=== PATIENT | female | born 1955 | race Caucasian/White ===

== ENCOUNTER 2017-09-07 12:33 | Emergency (ER) | payer SELFPAY ==
[~2017-09-07] VITALS: Ht 172.7 cm; Wt 97.0 kg
[~2017-09-07 12:33] MED LIST: ADLT ASA LOW81 MG PO; AMOXICILLIN500 MG PO; AUGMENTIN875TAB PO; BACTRIM DS1 TAB PO; BENADRYL 50MG C50 MG OR; KAZANO PO; KEFLEX500 M1 PO; LEVEMIR FL100 UNIT/M SC; LEVEMIR1000 UNITS SC; LIPITOR20 MG PO; MEDDOSEPAK OR; NAPROSYN500 MG OR; NESINA25 MG PO; NO MEDS; PATANOL0.1 % OP; PERCOCET 5/325M1 TAB OR; PERCOCET 5/325M1 TAB PO; ZITHROMAX250 MG PO; ZOFRAN ODT8 MG SL; ZOFRAN4 M1 OR; [UNRECOGNIZED DRUG - SUPPLY]; no home meds
[2017-09-07 13:12] LABS: HEMATOCRIT 40.1 % (37.0-47.0); HEMOGLOBIN 14.1 g/dl (12.0-16.0); IMMATURE GRANULOCYTES 0.5 % (0.0-1.0); MEAN CELL VOLUME 84.6 fL CALC (80.0-100.0); MEAN CORPUSCULAR HGB 29.7 pG CALC (26.0-32.0); MEAN CORPUSCULAR HGB CONC 35.2 g/L CALC (32.0-36.0); NEUT# 4.25 thou/uL (2.00-7.15); RED BLOOD COUNT 4.74 mill/uL (4.20-5.60); RED CELL DISTRI WIDTH 13.5 % (11.5-15.5)
[2017-09-07 13:32] LABS: ALBUMIN 4.3 g/dL (3.2-5.0); ALKALINE PHOSPHATASE 73 u/l (38-126); ANION GAP 17 (6-22 (CALC)); BUN 12 mg/dL (8-23); BUN/CREATININE RATIO 20 (12-20 (CALC)); CALCIUM 9.4 mg/dL (8.4-10.2); CARBON DIOXIDE 24 mmol/l (22-30); CHLORIDE 100 mmol/l (95-108); CREATININE 0.6 mg/dL (0.5-1.0); GFR > 60 ML/MIN (>=60 (CALC)); GFR FOR AFR.AMER. > 60 ML/MIN (>=60 (CALC)); GLUCOSE 400 mg/dL (82-115); SGOT/AST 31 u/l (9-36); SGPT/ALT 57 u/l (11-66); SODIUM 136 mmol/l (137-146); TOTAL PROTEIN 7.2 g/dL (6.3-8.2)
[2017-09-07] MEDS ORDERED: LEVEMIR100 UNIT/M SC (13:51)
[2017-09-07] MEDS ORDERED: BACTRIM DS1 TAB PO (13:52)
[2017-09-07 15:45] VITALS: BP 149/70
== END 2017-09-07 15:53 | disposition home or self-care (01) | DRG 603 ==
LOC: ED 12:33
PROVIDERS: Emergency Medicine
PROC: 0H9MXZZ Drainage of Right Foot Skin, External Approach (ICD-10-PCS; principal; 2017-09-07)
DX: L02.611 Cutaneous abscess of right foot (principal); B96.20 Unspecified Escherichia coli [E. coli] as the cause of diseases classified elsewhere; Z16.12 Extended spectrum beta lactamase (ESBL) resistance

== ENCOUNTER 2017-09-09 18:08 | Observation (INO) | payer SELFPAY ==
[~2017-09-09] VITALS: Ht 172.7 cm; Wt 97.0 kg
[~2017-09-09 18:08] MED LIST changes: +LEVEMIR100 UNIT/M SC
--- NOTE | 2017-09-09 18:55 | NUR ---
RECEIVED REPORT FROM MESSI HERNÁNDEZ. IN ROOM INTRODUCED SELF TO PT. NO C/O.
--- NOTE | 2017-09-09 19:33 | NUR ---
AMBULATED TO BR GAIT SLOW AND STEADY, VOIDING QS JV URINE. NO C/O.
--- NOTE | 2017-09-09 20:20 | NUR ---
PATIENT ARRIVED TO THE FLOOR IN STABLE CONDITION VIA WHEELCHAIR AND ACCOMPANIED BY ED STAFF. PATIENT WEIGHED AND SETTLED TO BED. ORIENT PATIENT TO ROOM CALL SYSTEM. BED IN LOW POSITION, CALL LIGHT IN REACH.
--- NOTE | 2017-09-09 20:33 | NUR ---
AWAITING ADMISSION TO [facility]. C/O.
--- NOTE | 2017-09-09 21:10 | NUR ---
Admission Note Report Given to: ESTIVEN HERNÁNDEZ Transported by: Wheelchair X Stretcher Transported with: X Nurse X Transporter X Patent IV [employer] Bio Medical Technician
[2017-09-09 21:20] VITALS: BP 141/75
[2017-09-09 23:09] VITALS: BP 160/77
--- NOTE | 2017-09-10 01:00 | NUR ---
OUTDOOR ILLUMINATING ENGINEER REPORTS THAT PATIENT WANTS TO LEAVE. WENT TO PATIENT ROOM TO ENCOURAGE TO STAY UNTIL SEEM BY THE DOCTOR IN THE MORNING. PATIENT STATED" I WAS TOLD BY THE ER DOCTOR THAT I WOULD BE ADMITTED FOR 24-48 HOURS FOR ANTIBIOTICS AND THAT IS NOT HAPPENING" REMINDED PATIENT THAT THE TREATMENT HAS ALREADY BEGUN. PT INSISTED THAT HER IV ACCESS BE PULLED OR SHE WILL BE LEAVING WITH IT IN PLACE.
--- NOTE | 2017-09-10 01:45 | NUR ---
PATIENT LEFT AMA. PRIOR TO LEAVING PATIENT WAS EDUCATED ON THE CONSEQUENCES OF LEAVING AMA. PT STATED "I UNDERSTAND". PATIENT WAS ADVISED THAT SHE MAY RETURN TO THE ED AT ANY TIME CONVENIENT TO HER. SALINE LOCK REMOVED. IV CATHETER TIP INTACT. PUNCTURE SITE COVERED WITH TAPE OVER GAUZE.
--- NOTE | 2017-09-10 01:45 | NUR ---
NOTIFY DR FLORES THAT PT HAS LEFT AMA.
== END 2017-09-10 01:45 | disposition left against medical advice (07) | DRG 603 ==
LOC: ED 18:08 → ED-I 18:52 → ED 19:03 → MS2 19:04
PROVIDERS: ADMIT Internal Medicine; ATTEND Internal Medicine
DX: L03.031 Cellulitis of right toe (principal); E11.9 Type 2 diabetes mellitus without complications
CPT/HCPCS: G0378; J1335

== ENCOUNTER 2017-09-21 13:19 | Emergency (ER) | payer SELFPAY ==
[~2017-09-21] VITALS: Ht 172.7 cm; Wt 99.0 kg
[2017-09-21 15:59] LABS: HEMATOCRIT 40.2 % (37.0-47.0); HEMOGLOBIN 14.2 g/dl (12.0-16.0); IMMATURE GRANULOCYTES 0.4 % (0.0-1.0); MEAN CELL VOLUME 84.8 fL CALC (80.0-100.0); MEAN CORPUSCULAR HGB CONC 35.3 g/L CALC (32.0-36.0); NEUT# 5.61 thou/uL (2.00-7.15); RED BLOOD COUNT 4.74 mill/uL (4.20-5.60); RED CELL DISTRI WIDTH 13.4 % (11.5-15.5)
[2017-09-21 16:40] VITALS: BP 155/78
[2017-09-21 16:45] LABS: ALBUMIN 4.1 g/dL (3.2-5.0); ALKALINE PHOSPHATASE 73 u/l (38-126); ANION GAP 16 (6-22 (CALC)); BILIRUBIN, TOTAL 0.9 mg/dL (0.0-1.4); BUN 13 mg/dL (8-23); BUN/CREATININE RATIO 27 (12-20 (CALC)); CARBON DIOXIDE 21 mmol/l (22-30); CHLORIDE 102 mmol/l (95-108); CREATININE 0.5 mg/dL (0.5-1.0); GFR > 60 ML/MIN (>=60 (CALC)); GFR FOR AFR.AMER. > 60 ML/MIN (>=60 (CALC)); GLUCOSE 339 mg/dL (82-115); POTASSIUM 4.1 mmol/l (3.5-5.1); SGOT/AST 40 u/l (9-36); SGPT/ALT 57 u/l (11-66); SODIUM 134 mmol/l (137-146)
== END 2017-09-21 16:40 | disposition home or self-care (01) | DRG 603 ==
LOC: ED 13:19
PROVIDERS: Emergency Medicine
DX: L08.9 Local infection of the skin and subcutaneous tissue, unspecified (principal); E11.9 Type 2 diabetes mellitus without complications
CPT/HCPCS: J1335

== ENCOUNTER 2017-09-22 15:44 | Emergency (ER) | payer SELFPAY ==
[~2017-09-22] VITALS: Ht 172.7 cm; Wt 80.0 kg
[2017-09-22 17:25] VITALS: BP 146/62
== END 2017-09-22 17:25 | disposition home or self-care (01) | DRG 603 ==
LOC: ED 15:44
DX: L08.9 Local infection of the skin and subcutaneous tissue, unspecified (principal); B95.7 Other staphylococcus as the cause of diseases classified elsewhere
CPT/HCPCS: J1335

== ENCOUNTER 2018-01-10 14:44 | Emergency (ER) | payer SELFPAY ==
[~2018-01-10] VITALS: Ht 152.4 cm; Wt 101.1 kg
[2018-01-10 15:56] LABS: HEMATOCRIT 42.3 % (37.0-47.0); HEMOGLOBIN 15.1 g/dl (12.0-16.0); IMMATURE GRANULOCYTES 0.4 % (0.0-1.0); MEAN CELL VOLUME 83.4 fL CALC (80.0-100.0); MEAN CORPUSCULAR HGB 29.8 pG CALC (26.0-32.0); MEAN CORPUSCULAR HGB CONC 35.7 g/L CALC (32.0-36.0); NEUT# 5.13 thou/uL (2.00-7.15); RED BLOOD COUNT 5.07 mill/uL (4.20-5.60); RED CELL DISTRI WIDTH 13.3 % (11.5-15.5)
[2018-01-10 16:08] LABS: ALBUMIN 4.5 g/dL (3.2-5.0); ALKALINE PHOSPHATASE 84 u/l (38-126); ANION GAP 19 (6-22 (CALC)); BILIRUBIN, TOTAL 0.9 mg/dL (0.0-1.4); BUN 16 mg/dL (8-23); BUN/CREATININE RATIO 27 (12-20 (CALC)); CARBON DIOXIDE 21 mmol/l (22-30); CHLORIDE 99 mmol/l (95-108); CREATININE 0.6 mg/dL (0.5-1.0); GFR > 60 ML/MIN (>=60 (CALC)); GFR FOR AFR.AMER. > 60 ML/MIN (>=60 (CALC)); POTASSIUM 4.4 mmol/l (3.5-5.1); SGOT/AST 42 u/l (9-36); SGPT/ALT 73 u/l (11-66); SODIUM 135 mmol/l (137-146); TOTAL PROTEIN 7.3 g/dL (6.3-8.2)
[2018-01-10 17:03] VITALS: BP 147/75
[2018-01-11] MEDS ORDERED: LEVEMIR FL100 UNIT/M SC (12:22)
--- NOTE | 2018-01-13 14:49 | NUR ---
Review of wound cultures collected on 01/10/18 show cardoza-sensitive Enterococcus in L mid toe and coag-neg staph in R middle toe that is resistant to erythromycin and oxacillin. Pt contact attempted. Voicemail left for call back. Pt should receive either vancomycin 1500 mg IV q12h, daptomycin IV, or po doxycycline. Pt may be able to receive treatment through health department.
--- NOTE | 2018-01-14 15:59 | NUR ---
Spoke to pt on 01/14/18 @[id number]. Advised pt of wound culture results and of importance to follow-up with provider for continued care. Recommended that pt may seek treatment at health department or community care if unable to afford seeing a private physician group, such as [facility]. Pt said she will not go to [facility]. Pt advised of her options and that whatever provider she chooses, she can receive IV therapy here if needed and the Pharmacy department is available to discuss results with the provider. Explained that she must be followed by a provider to receive continued IV antibiotics due to severity of infection. Pt said she will call Dr Monterroso's office.
== END 2018-01-10 17:08 | disposition home or self-care (01) | DRG 603 ==
LOC: ED 14:44
PROVIDERS: Emergency Medicine
PROC: 0H9MXZZ Drainage of Right Foot Skin, External Approach (ICD-10-PCS; principal; 2018-01-10)
DX: L03.031 Cellulitis of right toe (principal); E11.9 Type 2 diabetes mellitus without complications; Z86.14 Personal history of Methicillin resistant Staphylococcus aureus infection
CPT/HCPCS: J0878; J1335

== ENCOUNTER 2018-01-11 11:26 | Emergency (ER) | payer SELFPAY ==
[~2018-01-11] VITALS: Ht 172.7 cm; Wt 100.0 kg
[2018-01-11] MEDS ORDERED: LEVEMIR FL100 UNIT/M SC (12:22)
[2018-01-11 12:50] VITALS: BP 150/70
== END 2018-01-11 12:50 | disposition home or self-care (01) | DRG 605 ==
LOC: ED 11:26
DX: S91.104A Unspecified open wound of right lesser toe(s) without damage to nail, initial encounter (principal); L08.9 Local infection of the skin and subcutaneous tissue, unspecified; E11.9 Type 2 diabetes mellitus without complications; X58.XXXA Exposure to other specified factors, initial encounter; Z86.14 Personal history of Methicillin resistant Staphylococcus aureus infection
CPT/HCPCS: J1335

== ENCOUNTER 2018-01-12 14:53 | Emergency (ER) | payer SELFPAY ==
[~2018-01-12] VITALS: Ht 172.7 cm; Wt 101.2 kg
[2018-01-12 17:30] VITALS: BP 153/77
== END 2018-01-12 17:30 | disposition home or self-care (01) | DRG 603 ==
LOC: ED 14:53
DX: L03.031 Cellulitis of right toe (principal); E11.9 Type 2 diabetes mellitus without complications; Z86.14 Personal history of Methicillin resistant Staphylococcus aureus infection
CPT/HCPCS: J1335

== ENCOUNTER 2018-01-14 17:45 | Emergency (ER) | payer SELFPAY ==
[~2018-01-14] VITALS: Ht 172.7 cm; Wt 99.0 kg
[2018-01-14 20:09] VITALS: BP 139/70
== END 2018-01-14 20:09 | disposition home or self-care (01) | DRG 603 ==
LOC: ED 17:45
DX: L03.031 Cellulitis of right toe (principal); Z86.14 Personal history of Methicillin resistant Staphylococcus aureus infection; E11.9 Type 2 diabetes mellitus without complications; Z79.4 Long term (current) use of insulin
CPT/HCPCS: J1335

== ENCOUNTER 2018-01-30 11:18 | Emergency (ER) | payer MEDICARE ==
[~2018-01-30] VITALS: Ht 172.7 cm; Wt 97.0 kg
[2018-01-30] MEDS ORDERED: DOXYCYC MONO100 M2 PO (12:06)
[2018-01-30 12:07] VITALS: BP 132/65
== END 2018-01-30 12:10 | disposition home or self-care (01) ==
LOC: ED 11:18
DX: L03.031 Cellulitis of right toe (principal); B96.89 Other specified bacterial agents as the cause of diseases classified elsewhere; E11.9 Type 2 diabetes mellitus without complications; Z86.14 Personal history of Methicillin resistant Staphylococcus aureus infection; Z79.4 Long term (current) use of insulin; M79.671 Pain in right foot

== ENCOUNTER 2018-02-26 16:16 | Emergency (ER) | payer MEDICARE ==
[~2018-02-26] VITALS: Ht 172.7 cm; Wt 99.6 kg
[~2018-02-26 16:16] MED LIST changes: +DOXYCYC MONO100 M2 PO
[2018-02-26 16:25] VITALS: BP 154/70
[2018-02-26] MEDS ORDERED: CEPHALEXIN500 M1 PO (16:45)
== END 2018-02-26 17:01 | disposition home or self-care (01) ==
LOC: ED 16:16
DX: L03.116 Cellulitis of left lower limb (principal); E11.40 Type 2 diabetes mellitus with diabetic neuropathy, unspecified; Z86.14 Personal history of Methicillin resistant Staphylococcus aureus infection

== ENCOUNTER 2018-04-03 10:52 | Emergency (ER) | payer MEDICARE, MEDICAID ==
[~2018-04-03] VITALS: Ht 172.7 cm; Wt 97.7 kg
[~2018-04-03 10:52] MED LIST changes: +CEPHALEXIN500 M1 PO
[2018-04-03 11:30] VITALS: BP 151/74
== END 2018-04-03 11:30 | disposition home or self-care (01) ==
LOC: ED 10:52
DX: Z48.01 Encounter for change or removal of surgical wound dressing (principal); Z89.421 Acquired absence of other right toe(s)

== ENCOUNTER 2018-05-12 13:25 | Emergency (ER) | payer MEDICARE, MEDICAID ==
[~2018-05-12] VITALS: Ht 172.7 cm; Wt 100.0 kg
[~2018-05-12 13:25] MED LIST changes: +METFORMIN HCL500 M2 PO; +TOUJEO SOL300 UNIT/M SC
[2018-05-12] MEDS ORDERED: DICLOFENAC75 MG PO (14:06)
[2018-05-12] MEDS ORDERED: ORPHENADRINE100 MG PO (14:06)
[2018-05-12] MEDS ORDERED: TRAMADOL HYDROC50 MG PO (14:06)
[2018-05-12] MEDS ORDERED: METFORMIN500 M2 PO (14:08)
[2018-05-12 14:10] VITALS: BP 154/76
== END 2018-05-12 14:10 | disposition home or self-care (01) ==
LOC: ED 13:25
DX: M54.5 Low back pain (principal); G89.29 Other chronic pain; E11.40 Type 2 diabetes mellitus with diabetic neuropathy, unspecified

== ENCOUNTER 2018-05-22 11:35 | Emergency (ER) | payer MEDICARE, MEDICAID ==
[~2018-05-22] VITALS: Ht 172.7 cm; Wt 100.0 kg
[~2018-05-22 11:35] MED LIST changes: +DICLOFENAC75 MG PO; +METFORMIN500 M2 PO; +ORPHENADRINE100 MG PO; +TRAMADOL HYDROC50 MG PO
[2018-05-22 12:58] LABS: URINE BILIRUBIN - DIPSTICK NEGATIVE (NEGATIVE); URINE BLOOD DIPSTICK NEGATIVE (NEGATIVE); URINE COLOR YELLOW; URINE GLUCOSE - DIPSTICK 100 mg/dL (NEGATIVE); URINE KETONE NEGATIVE (NEGATIVE); URINE LEUK ESTERASE NEGATIVE (NEGATIVE); URINE NITRITE - DIPSTICK NEGATIVE (Negative); URINE PH 5.5 (4.5-8.0); URINE PROTEIN - DIPSTICK NEGATIVE (NEG-TRACE); URINE SPECIFIC GRAVITY <=1.005; URINE UROBILINOGEN - DIPSTICK 0.2 E.U./dL (0.2)
[2018-05-22 12:59] LABS: HEMATOCRIT 41.1 % (37.0-47.0); HEMOGLOBIN 14.6 g/dl (12.0-16.0); IMMATURE GRANULOCYTES 0.4 % (0.0-1.0); MEAN CELL VOLUME 84.2 fL CALC (80.0-100.0); MEAN CORPUSCULAR HGB 29.9 pG CALC (26.0-32.0); MEAN CORPUSCULAR HGB CONC 35.5 g/L CALC (32.0-36.0); NEUT# 4.05 thou/uL (2.00-7.15); RED BLOOD COUNT 4.88 mill/uL (4.20-5.60); RED CELL DISTRI WIDTH 13.4 % (11.5-15.5)
[2018-05-22 13:00] LABS: URINE CLARITY CLEAR
[2018-05-22 13:13] LABS: ALBUMIN 4.4 g/dL (3.2-5.0); ALKALINE PHOSPHATASE 75 u/l (38-126); ANION GAP 16 (6-22 (CALC)); BUN 11 mg/dL (8-23); BUN/CREATININE RATIO 23 (12-20 (CALC)); CARBON DIOXIDE 24 mmol/l (22-30); CHLORIDE 100 mmol/l (95-108); CREATININE 0.5 mg/dL (0.5-1.0); GFR > 60 ML/MIN (>=60 (CALC)); GFR FOR AFR.AMER. > 60 ML/MIN (>=60 (CALC)); LIPASE 72 u/l (23-300); POTASSIUM 4.7 mmol/l (3.5-5.1); SGOT/AST 41 u/l (9-36); SGPT/ALT 70 u/l (11-66); SODIUM 134 mmol/l (137-146); TOTAL PROTEIN 7.8 g/dL (6.3-8.2)
[2018-05-22] MEDS ORDERED: DULCOLAX10 MG RE ×2 (13:29→14:08)
[2018-05-22 14:00] VITALS: BP 156/63
== END 2018-05-22 14:00 | disposition home or self-care (01) ==
LOC: ED 11:35
PROVIDERS: Emergency Medicine
DX: K56.41 Fecal impaction (principal); E11.40 Type 2 diabetes mellitus with diabetic neuropathy, unspecified; Z86.14 Personal history of Methicillin resistant Staphylococcus aureus infection

== ENCOUNTER 2018-10-31 21:04 | Emergency (ER) | payer MEDICARE, MEDICAID ==
[~2018-10-31] VITALS: Ht 172.7 cm; Wt 98.6 kg
[~2018-10-31 21:04] MED LIST changes: +DULCOLAX10 MG RE; +NEFAZODONE PO
[2018-10-31] MEDS ORDERED: LOSARTAN POT25 MG PO (21:22)
[2018-10-31] MEDS ORDERED: FLECTOR1.3 % EX (21:22)
[2018-10-31] MEDS ORDERED: VOLTAREN - GENE75 MG PO (21:26)
[2018-10-31] MEDS ORDERED: TRAMADOL HCL50 MG PO (21:26)
[2018-10-31 21:40] VITALS: BP 175/80
== END 2018-10-31 21:40 | disposition home or self-care (01) ==
LOC: ED 21:04
DX: M70.71 Other bursitis of hip, right hip (principal); G57.10 Meralgia paresthetica, unspecified lower limb; M79.604 Pain in right leg

== ENCOUNTER 2018-12-09 20:30 | Emergency (ER) | payer MEDICARE, MEDICAID ==
[~2018-12-09] VITALS: Ht 172.7 cm; Wt 97.0 kg
[~2018-12-09 20:30] MED LIST changes: +FLECTOR1.3 % EX; +LOSARTAN POT25 MG PO; +TRAMADOL HCL50 MG PO; +VOLTAREN - GENE75 MG PO
[2018-12-09 21:06] VITALS: BP 167/73
== END 2018-12-09 21:06 | disposition left against medical advice (07) ==
LOC: ED 20:30
DX: M54.5 Low back pain (principal); E11.40 Type 2 diabetes mellitus with diabetic neuropathy, unspecified; Z91.19 Patient's noncompliance with other medical treatment and regimen

== ENCOUNTER 2018-12-11 14:28 | Emergency (ER) | payer MEDICARE, MEDICAID ==
[~2018-12-11] VITALS: Ht 172.7 cm; Wt 100.0 kg
[2018-12-11] MEDS ORDERED: ULTRAM50 M1 PO (15:11)
[2018-12-11] MEDS ORDERED: MEDDOSEPAK PO (15:11)
[2018-12-11 15:28] VITALS: BP 138/75
== END 2018-12-11 15:28 | disposition home or self-care (01) ==
LOC: ED 14:28
DX: M25.551 Pain in right hip (principal); G89.29 Other chronic pain; E11.40 Type 2 diabetes mellitus with diabetic neuropathy, unspecified

== ENCOUNTER 2019-10-24 14:00 | Inpatient (IN) | payer MEDICARE, MEDICAID ==
[~2019-10-24] VITALS: Ht 172.7 cm; Wt 97.0 kg
[~2019-10-24 14:00] MED LIST changes: +MEDDOSEPAK PO; +ULTRAM50 M1 PO
[2019-10-24] MEDS ORDERED: TRAMADOL HYDROC50 M1 PO (18:35)
[2019-10-24] MEDS ORDERED: DOXYCYCLINE100 MG PO (18:35)
[2019-10-24 19:44] LABS: ALBUMIN 4.6 g/dL (3.2-5.0); ALKALINE PHOSPHATASE 63 u/l (38-126); ANION GAP 16 (6-22 (CALC)); BILIRUBIN, TOTAL 0.8 mg/dL (0.0-1.4); BUN 19 mg/dL (8-23); BUN/CREATININE RATIO 34 (12-20 (CALC)); CARBON DIOXIDE 26 mmol/l (22-30); CHLORIDE 99 mmol/l (95-108); CREATININE 0.5 mg/dL (0.5-1.0); GFR > 60 ML/MIN (>=60 (CALC)); GFR FOR AFR.AMER. > 60 ML/MIN (>=60 (CALC)); SGOT/AST 32 u/l (9-36); SODIUM 135 mmol/l (137-146)
[2019-10-24 19:54] LABS: HEMATOCRIT 39.5 % (37.0-47.0); HEMOGLOBIN 13.8 g/dl (12.0-16.0); RED BLOOD COUNT 4.6 mill/uL (4.20-5.60)
[2019-10-24 19:55] LABS: MEAN CELL VOLUME 85.9 fL CALC (80.0-100.0); MEAN CORPUSCULAR HGB CONC 34.9 g/L CALC (32.0-36.0)
[2019-10-24 19:56] LABS: NEUT# 7.39 thou/uL (2.00-7.15); RED CELL DISTRI WIDTH 13.6 % (11.5-15.5)
[2019-10-24 20:08] VITALS: BP 163/68
[2019-10-25 04:12] VITALS: BP 157/73
[2019-10-25 05:33] LABS: ANION GAP 14 (6-22 (CALC)); BUN 17 mg/dL (8-23); BUN/CREATININE RATIO 27 (12-20 (CALC)); CARBON DIOXIDE 26 mmol/l (22-30); CHLORIDE 102 mmol/l (95-108); CREATININE 0.6 mg/dL (0.5-1.0); GFR > 60 ML/MIN (>=60 (CALC)); GFR FOR AFR.AMER. > 60 ML/MIN (>=60 (CALC)); SODIUM 137 mmol/l (137-146)
[2019-10-25 07:42] VITALS: BP 155/72
[2019-10-25 10:32] LABS: HEMATOCRIT 35.9 % (37.0-47.0); HEMOGLOBIN 12.4 g/dl (12.0-16.0); IMMATURE GRANULOCYTES 0.4 % (0.0-5.0); MEAN CELL VOLUME 87.1 fL CALC (80.0-100.0); MEAN CORPUSCULAR HGB 30.1 pG CALC (26.0-32.0); MEAN CORPUSCULAR HGB CONC 34.5 g/L CALC (32.0-36.0); NEUT# 4.28 thou/uL (2.00-7.15); RED BLOOD COUNT 4.12 mill/uL (4.20-5.60); RED CELL DISTRI WIDTH 13.4 % (11.5-15.5)
[2019-10-25 16:17] VITALS: BP 154/71
[2019-10-25 18:55] VITALS: BP 158/70
[2019-10-25 19:29] LABS: URINE BILIRUBIN - DIPSTICK NEGATIVE (NEGATIVE); URINE BLOOD DIPSTICK NEGATIVE (NEGATIVE); URINE COLOR YELLOW; URINE GLUCOSE - DIPSTICK NEGATIVE (NEGATIVE); URINE KETONE NEGATIVE (NEGATIVE); URINE LEUK ESTERASE NEGATIVE (NEGATIVE); URINE NITRITE - DIPSTICK NEGATIVE (Negative); URINE PROTEIN - DIPSTICK NEGATIVE (NEG-TRACE); URINE UROBILINOGEN - DIPSTICK 0.2 E.U./dL (0.2)
[2019-10-26 04:47] VITALS: BP 131/71
[2019-10-26 07:35] VITALS: BP 149/76
[2019-10-26 16:52] VITALS: BP 171/68
[2019-10-26 19:10] VITALS: BP 119/60
[2019-10-27] VITALS (10 sets, daily range): BP systolic 134–168; BP diastolic 47–76
[2019-10-27 04:55] LABS: HEMATOCRIT 33.4 % (37.0-47.0); HEMOGLOBIN 11.5 g/dl (12.0-16.0); IMMATURE GRANULOCYTES 0.2 % (0.0-5.0); MEAN CELL VOLUME 87.4 fL CALC (80.0-100.0); MEAN CORPUSCULAR HGB 30.1 pG CALC (26.0-32.0); MEAN CORPUSCULAR HGB CONC 34.4 g/L CALC (32.0-36.0); NEUT# 6.05 thou/uL (2.00-7.15); RED BLOOD COUNT 3.82 mill/uL (4.20-5.60); RED CELL DISTRI WIDTH 13.6 % (11.5-15.5)
[2019-10-27 05:12] LABS: ANION GAP 14 (6-22 (CALC)); BUN 12 mg/dL (8-23); BUN/CREATININE RATIO 20 (12-20 (CALC)); CARBON DIOXIDE 21 mmol/l (22-30); CHLORIDE 107 mmol/l (95-108); CREATININE 0.6 mg/dL (0.5-1.0); GFR > 60 ML/MIN (>=60 (CALC)); GFR FOR AFR.AMER. > 60 ML/MIN (>=60 (CALC)); POTASSIUM 4.1 mmol/l (3.5-5.1); SODIUM 137 mmol/l (137-146)
[2019-10-28 03:35] VITALS: BP 124/70
[2019-10-28 05:42] LABS: HEMATOCRIT 33.3 % (37.0-47.0); HEMOGLOBIN 11.3 g/dl (12.0-16.0); IMMATURE GRANULOCYTES 0.2 % (0.0-5.0); MEAN CORPUSCULAR HGB 30.2 pG CALC (26.0-32.0); MEAN CORPUSCULAR HGB CONC 33.9 g/L CALC (32.0-36.0); NEUT# 5.38 thou/uL (2.00-7.15); RED BLOOD COUNT 3.74 mill/uL (4.20-5.60); RED CELL DISTRI WIDTH 13.8 % (11.5-15.5)
[2019-10-28 05:54] LABS: ANION GAP 12 (6-22 (CALC)); BUN 11 mg/dL (8-23); BUN/CREATININE RATIO 18 (12-20 (CALC)); CARBON DIOXIDE 24 mmol/l (22-30); CHLORIDE 108 mmol/l (95-108); CREATININE 0.6 mg/dL (0.5-1.0); GFR > 60 ML/MIN (>=60 (CALC)); GFR FOR AFR.AMER. > 60 ML/MIN (>=60 (CALC)); MAGNESIUM 2.1 mg/dL (1.6-2.3); POTASSIUM 4.4 mmol/l (3.5-5.1); SODIUM 139 mmol/l (137-146)
[2019-10-28 08:00] VITALS: BP 148/71
[2019-10-28 08:42] VITALS: BP 148/71
[2019-10-28] MEDS ORDERED: PERCOCET 5/325M1 TAB PO (09:17)
== END 2019-10-28 10:18 | disposition home or self-care (01) | DRG 256 ==
LOC: ED 14:00 → MS2 18:37
PROVIDERS: Nurse Practitioner Family; ADMIT Internal Medicine; ATTEND Internal Medicine
PROC: 0Y6R0Z0 Detachment at Right 2nd Toe, Complete, Open Approach (ICD-10-PCS; principal; 2019-10-27)
DX: E11.52 Type 2 diabetes mellitus with diabetic peripheral angiopathy with gangrene (principal); I96 Gangrene, not elsewhere classified; L03.115 Cellulitis of right lower limb; L97.518 Non-pressure chronic ulcer of other part of right foot with other specified severity; E11.621 Type 2 diabetes mellitus with foot ulcer; E11.42 Type 2 diabetes mellitus with diabetic polyneuropathy; L84 Corns and callosities; R03.0 Elevated blood-pressure reading, without diagnosis of hypertension; R74.0 Nonspecific elevation of levels of transaminase and lactic acid dehydrogenase [LDH]; Z79.84 Long term (current) use of oral hypoglycemic drugs; Z86.19 Personal history of other infectious and parasitic diseases
CPT/HCPCS: G0378; J0692; J3370

== ENCOUNTER 2019-10-31 00:13 | Emergency (ER) | payer MEDICARE, MEDICAID ==
[~2019-10-31] VITALS: Ht 172.7 cm; Wt 99.4 kg
[~2019-10-31 00:13] MED LIST changes: +DOXYCYCLINE100 MG PO; +TRAMADOL HYDROC50 M1 PO
[2019-10-31 01:04] VITALS: BP 144/76
== END 2019-10-31 01:04 | disposition home or self-care (01) ==
LOC: ED 00:13
DX: T87.89 Other complications of amputation stump (principal); E11.42 Type 2 diabetes mellitus with diabetic polyneuropathy; Y83.5 Amputation of limb(s) as the cause of abnormal reaction of the patient, or of later complication, without mention of misadventure at the time of the procedure; Z79.4 Long term (current) use of insulin; Z89.421 Acquired absence of other right toe(s)

== ENCOUNTER 2020-01-01 | Emergency (ER) | payer MEDICARE, MEDICAID ==
[2020-01-01 02:23] LABS: HEMATOCRIT 36.3 % (37.0-47.0); HEMOGLOBIN 12.7 g/dl (12.0-16.0); IMMATURE GRANULOCYTES 0.4 % (0.0-5.0); MEAN CELL VOLUME 85.6 fL CALC (80.0-100.0); NEUT# 6.82 thou/uL (2.00-7.15); RED BLOOD COUNT 4.24 mill/uL (4.20-5.60); RED CELL DISTRI WIDTH 13.5 % (11.5-15.5)
[2020-01-01 02:37] LABS: ALBUMIN 4.3 g/dL (3.2-5.0); ALKALINE PHOSPHATASE 56 u/l (38-126); ANION GAP 14 (6-22 (CALC)); BUN 16 mg/dL (8-23); BUN/CREATININE RATIO 32 (12-20 (CALC)); CARBON DIOXIDE 24 mmol/l (22-30); CHLORIDE 100 mmol/l (95-108); CREATININE 0.5 mg/dL (0.5-1.0); GFR > 60 ML/MIN (>=60 (CALC)); GFR FOR AFR.AMER. > 60 ML/MIN (>=60 (CALC)); POTASSIUM 4.4 mmol/l (3.5-5.1); SGOT/AST 41 u/l (9-36); SODIUM 133 mmol/l (137-146); TOTAL PROTEIN 7.9 g/dL (6.3-8.2)
[2020-01-01] MEDS ORDERED: BACTRIM DS1 TAB PO (03:21)
[2020-01-01] MEDS ORDERED: KEFLEX500 M1 PO (03:21)
== END 2020-01-01 04:10 | disposition home or self-care (01) ==
PROVIDERS: Emergency Medicine
PROC: 0H9NXZZ Drainage of Left Foot Skin, External Approach (ICD-10-PCS; principal; 2020-01-01)
DX: L03.116 Cellulitis of left lower limb (principal); L02.612 Cutaneous abscess of left foot; E11.40 Type 2 diabetes mellitus with diabetic neuropathy, unspecified; Z79.4 Long term (current) use of insulin

== ENCOUNTER 2021-08-04 12:42 | Emergency (ER) | payer MEDICARE, MEDICAID ==
[~2021-08-04] VITALS: Ht 172.7 cm; Wt 95.4 kg
[2021-08-04 14:25] VITALS: BP 176/73
[2021-08-04] MEDS ORDERED: TRAMADOL HCL50 MG PO ×2 (14:26→14:27)
== END 2021-08-04 14:25 | disposition home or self-care (01) ==
LOC: ED 12:42
DX: S09.90XA Unspecified injury of head, initial encounter (principal); R11.2 Nausea with vomiting, unspecified; E11.40 Type 2 diabetes mellitus with diabetic neuropathy, unspecified; W55.12XA Struck by horse, initial encounter; Y93.K9 Activity, other involving animal care; Z79.4 Long term (current) use of insulin; Z20.822 Contact with and (suspected) exposure to COVID-19

== ENCOUNTER 2021-09-15 18:09 | Emergency (ER) | payer MEDICARE, MEDICAID ==
[~2021-09-15] VITALS: Ht 172.7 cm; Wt 94.8 kg
[2021-09-15 19:57] LABS: HEMATOCRIT 41.6 % (37.0-47.0); HEMOGLOBIN 14.1 g/dl (12.0-16.0); IMMATURE GRANULOCYTES 0.1 % (0.0-5.0); MEAN CELL VOLUME 88.1 fL CALC (80.0-100.0); MEAN CORPUSCULAR HGB 29.9 pG CALC (26.0-32.0); MEAN CORPUSCULAR HGB CONC 33.9 g/dL CAL (32.0-36.0); NEUT# 7.8 thou/uL (2.00-7.15); RED BLOOD COUNT 4.72 mill/uL (4.20-5.60); RED CELL DISTRI WIDTH 12.9 % (11.5-15.5)
[2021-09-15 20:04] LABS: ALBUMIN 4.6 g/dL (3.2-5.0); ALKALINE PHOSPHATASE 67 u/l (38-126); AMYLASE 51 u/l (30-110); BILIRUBIN, TOTAL 0.7 mg/dL (0.0-1.4); BUN 16 mg/dL (8-23); BUN/CREATININE RATIO 26 (12-20 (CALC)); CHLORIDE 101 mmol/l (95-108); CREATININE 0.6 mg/dL (0.5-1.0); GFR > 60 ML/MIN (>=60 (CALC)); GFR FOR AFR.AMER. > 60 ML/MIN (>=60 (CALC)); LIPASE 79 u/l (23-300); POTASSIUM 4.7 mmol/l (3.5-5.1); SGOT/AST 29 u/l (9-36); TOTAL PROTEIN 7.9 g/dL (6.3-8.2)
[2021-09-15 20:05] LABS: ANION GAP 15 (6-22 (CALC)); CARBON DIOXIDE 29 mmol/l (22-30); SODIUM 140 mmol/l (137-146)
[2021-09-15 20:24] LABS: URINE BILIRUBIN - DIPSTICK NEGATIVE (NEGATIVE); URINE BLOOD DIPSTICK NEGATIVE (NEGATIVE); URINE COLOR YELLOW; URINE GLUCOSE - DIPSTICK NEGATIVE (NEGATIVE); URINE KETONE NEGATIVE (NEGATIVE); URINE LEUK ESTERASE NEGATIVE (NEGATIVE); URINE PROTEIN - DIPSTICK 100 mg/dL (NEG-TRACE); URINE SPECIFIC GRAVITY >=1.030
[2021-09-15 20:31] LABS: URINE NITRITE - DIPSTICK NEGATIVE (Negative)
[2021-09-15 20:33] LABS: URINE RBC 0-2 RBC/hpf (0-5)
[2021-09-15] MEDS ORDERED: DICYCLOMINE10 MG PO (21:51)
[2021-09-15 22:29] VITALS: BP 186/76
== END 2021-09-15 22:49 | disposition home or self-care (01) ==
LOC: ED 18:09
PROVIDERS: Family Medicine
DX: K58.9 Irritable bowel syndrome, unspecified (principal); E11.40 Type 2 diabetes mellitus with diabetic neuropathy, unspecified; Z79.4 Long term (current) use of insulin
CPT/HCPCS: Q9967

== ENCOUNTER 2022-03-25 09:37 | Emergency (ER) | payer MEDICARE, MEDICAID ==
[~2022-03-25] VITALS: Ht 172.7 cm; Wt 96.0 kg
[2022-03-25] VITALS (10 sets, daily range): BP systolic 130–162; BP diastolic 52–72
[~2022-03-25 09:37] MED LIST changes: +DICYCLOMINE10 MG PO
[2022-03-25 10:33] LABS: HEMATOCRIT 38.7 % (37.0-47.0); HEMOGLOBIN 13.4 g/dl (12.0-16.0); IMMATURE GRANULOCYTES 0.3 % (0.0-5.0); MEAN CELL VOLUME 89.4 fL CALC (80.0-100.0); MEAN CORPUSCULAR HGB 30.9 pG CALC (26.0-32.0); MEAN CORPUSCULAR HGB CONC 34.6 g/dL CAL (32.0-36.0); NEUT# 11.73 thou/uL (2.00-7.15); RED BLOOD COUNT 4.33 mill/uL (4.20-5.60); RED CELL DISTRI WIDTH 12.5 % (11.5-15.5)
[2022-03-25 10:45] LABS: ALBUMIN 4.2 g/dL (3.2-5.0); ALKALINE PHOSPHATASE 74 u/l (38-126); ANION GAP 11 (6-22 (CALC)); BILIRUBIN, TOTAL 0.7 mg/dL (0.0-1.4); BUN 10 mg/dL (8-23); BUN/CREATININE RATIO 17 (12-20 (CALC)); CARBON DIOXIDE 26 mmol/l (22-30); CHLORIDE 99 mmol/l (95-108); CREATININE 0.6 mg/dL (0.5-1.0); GFR > 60 ML/MIN (>=60 (CALC)); GFR FOR AFR.AMER. > 60 ML/MIN (>=60 (CALC)); POTASSIUM 4.8 mmol/l (3.5-5.1); SGOT/AST 21 u/l (9-36); TOTAL PROTEIN 7.3 g/dL (6.3-8.2)
[2022-03-25 10:52] LABS: SODIUM 131 mmol/l (137-146)
[2022-03-25] MEDS ORDERED: LOSARTAN POTASS25 MG PO (20:03)
== END 2022-03-25 14:10 | disposition left against medical advice (07) ==
LOC: ED 09:37
PROVIDERS: Family Medicine
DX: R07.89 Other chest pain (principal); I10 Essential (primary) hypertension; E11.40 Type 2 diabetes mellitus with diabetic neuropathy, unspecified; E66.9 Obesity, unspecified; Z79.4 Long term (current) use of insulin; Z91.19 Patient's noncompliance with other medical treatment and regimen
CPT/HCPCS: Q9967

== ENCOUNTER 2022-03-25 18:53 | Observation (INO) | payer MEDICARE, MEDICAID ==
[2022-03-25] VITALS (9 sets, daily range): BP systolic 107–140; BP diastolic 46–67
[~2022-03-25] VITALS: Ht 172.7 cm; Wt 93.0 kg
[2022-03-25] MEDS ORDERED: LOSARTAN POTASS25 MG PO (20:03)
--- NOTE | 2022-03-25 20:09 | NUR ---
PT MEDICATED FOR PAIN. STRETCHER ADJUSTED. CALL LIGHT WITHIN REACH
[2022-03-25 20:10] LABS: HEMATOCRIT 41.9 % (37.0-47.0); HEMOGLOBIN 14.3 g/dl (12.0-16.0); IMMATURE GRANULOCYTES 0.2 % (0.0-5.0); MEAN CELL VOLUME 89.3 fL CALC (80.0-100.0); MEAN CORPUSCULAR HGB 30.5 pG CALC (26.0-32.0); MEAN CORPUSCULAR HGB CONC 34.1 g/dL CAL (32.0-36.0); NEUT# 12.82 thou/uL (2.00-7.15); RED BLOOD COUNT 4.69 mill/uL (4.20-5.60); RED CELL DISTRI WIDTH 12.6 % (11.5-15.5)
[2022-03-25 20:19] LABS: ALBUMIN 4.4 g/dL (3.2-5.0); ALKALINE PHOSPHATASE 73 u/l (38-126); ANION GAP 15 (6-22 (CALC)); BILIRUBIN, TOTAL 1.3 mg/dL (0.0-1.4); BUN 11 mg/dL (8-23); BUN/CREATININE RATIO 19 (12-20 (CALC)); CARBON DIOXIDE 24 mmol/l (22-30); CHLORIDE 98 mmol/l (95-108); CREATININE 0.6 mg/dL (0.5-1.0); GFR > 60 ML/MIN (>=60 (CALC)); GFR FOR AFR.AMER. > 60 ML/MIN (>=60 (CALC)); POTASSIUM 4.3 mmol/l (3.5-5.1); SGOT/AST 21 u/l (9-36); SODIUM 132 mmol/l (137-146); TOTAL PROTEIN 7.7 g/dL (6.3-8.2)
[2022-03-25 20:31] LABS: MYOGLOBIN 47 ng/mL (0 - 62)
--- NOTE | 2022-03-25 22:20 | NUR ---
REPORT RECEIVED FROM Isiah BUTLER RN.
--- NOTE | 2022-03-25 22:22 | NUR ---
REPORT CALLED TO [facility].
--- NOTE | 2022-03-25 22:30 | NUR ---
PATIENT ASSEMENT COMPLETED AT THIS TIME. PLAN OF CARE REVIEWED WITH PATIENT. ORIENTED TO ROOM AND CALL LIGHT SYSTEM. CALL LIGHT AND BEDSIDE TABLE WITHIN REACH.
--- NOTE | 2022-03-25 22:30 | NUR ---
PATIENT ARRIVED ON FLOOR ACCOMPNAINED BY CROP QUANTITATIVE GENETICIST. PATIENT AMBULATED WITH STEADY GAIT FROM STRETCHER TO BED.
--- NOTE | 2022-03-25 22:40 | NUR ---
PT TRANSPORTED TO [facility] VIA WHEELCHAIR BY MELISSA HERNÁNDEZ, NURSING CURTAINS AND DRAPERIES SALESPERSON.
--- NOTE | 2022-03-25 23:30 | NUR ---
PATIENT PROVIDED WITH MEAL PER REQUEST.
--- NOTE | 2022-03-26 00:15 | NUR ---
PATIENT MEDICATED PER EMAR, ORDER FOR SLIDING SCALE INSULIN ADMINISTERED FOR CBG 301
--- NOTE | 2022-03-26 04:41 | NUR ---
IT ENGINEER IN TO DRAW AM LABS.
[2022-03-26 06:22] LABS: HEMATOCRIT 39.4 % (37.0-47.0); HEMOGLOBIN 13.2 g/dl (12.0-16.0); MEAN CORPUSCULAR HGB 30.5 pG CALC (26.0-32.0); MEAN CORPUSCULAR HGB CONC 33.5 g/dL CAL (32.0-36.0); RED BLOOD COUNT 4.33 mill/uL (4.20-5.60); RED CELL DISTRI WIDTH 12.7 % (11.5-15.5)
[2022-03-26 06:54] LABS: ANION GAP 14 (6-22 (CALC)); BUN 18 mg/dL (8-23); BUN/CREATININE RATIO 21 (12-20 (CALC)); CALCULATED LDLCHOLESTEROL 60 mg/dL (62-129 (CALC)); CARBON DIOXIDE 24 mmol/l (22-30); CHLORIDE 98 mmol/l (95-108); CHOLESTEROL HDL RATIO 2.9 (<4.4 (CALC)); CREATININE 0.9 mg/dL (0.5-1.0); GFR > 60 ML/MIN (>=60 (CALC)); GFR FOR AFR.AMER. > 60 ML/MIN (>=60 (CALC)); HDL CHOLESTEROL 46 mg/dL (>=40); POTASSIUM 4.2 mmol/l (3.5-5.1); SODIUM 132 mmol/l (137-146); TOTAL CHOLESTEROL 131 mg/dl (0-199); TOTAL TRIGLYCERIDES 124 mg/dl (30-149); VLDL CHOLESTROL 25 mg/dl (1-41 (CALC))
--- NOTE | 2022-03-26 08:00 | NUR ---
MORNING REPORT RECEIVED FROM Isiah MCDONNELL RN. INTRODUCED MYSELF TO PT WHO IS AAO4 AND RESTING COMFORTABLY IN BED. PT NOT CURRENTLY COMPLAINING OF ANY PAIN. FALL PRECAUTIONS IN PLACE, PERSONAL ITEMS WITHIN REACH AND ROOM HAS BEEN CLEARED OF CLUTTER. EDUCATED PT ON USING CALL LIGHT WHEN IN NEED OF ASSISTANCE. PLAN OF CARE DISCUSSED WITH PT WHO DOES NOT HAVE ANY FURTHER QUESTIONS A THIS TIME.
[2022-03-26 08:14] VITALS: BP 118/50
[2022-03-26 10:47] VITALS: BP 102/51
[2022-03-26 11:40] LABS: URINE BILIRUBIN - DIPSTICK NEGATIVE (NEGATIVE); URINE BLOOD DIPSTICK NEGATIVE (NEGATIVE); URINE GLUCOSE - DIPSTICK 500 mg/dL (NEGATIVE); URINE KETONE TRACE mg/dL (NEGATIVE); URINE LEUK ESTERASE NEGATIVE (NEGATIVE); URINE PH 5.5 (4.5-8.0); URINE PROTEIN - DIPSTICK 30 mg/dL (NEG-TRACE); URINE SPECIFIC GRAVITY 1.025
[2022-03-26 11:41] LABS: URINE COLOR DK. YELLOW; URINE NITRITE - DIPSTICK NEGATIVE (Negative)
[2022-03-26 11:47] LABS: URINE SQUAMOUS EPITHELIAL CELL FEW EPI/hpf (0-FEW)
== END 2022-03-26 13:01 | disposition home or self-care (01) ==
LOC: ED 18:53 → ED-I 20:33 → ED 20:45 → MS2 20:46
PROVIDERS: Hospitalist; ADMIT Emergency Medicine; ATTEND Emergency Medicine
DX: M54.2 Cervicalgia (principal); D72.829 Elevated white blood cell count, unspecified; I10 Essential (primary) hypertension; E11.40 Type 2 diabetes mellitus with diabetic neuropathy, unspecified; M54.6 Pain in thoracic spine; G89.29 Other chronic pain; Z98.1 Arthrodesis status; Z79.4 Long term (current) use of insulin; Z20.822 Contact with and (suspected) exposure to COVID-19; R07.9 Chest pain, unspecified; R07.89 Other chest pain; E66.9 Obesity, unspecified; Z91.19 Patient's noncompliance with other medical treatment and regimen
CPT/HCPCS: J1650; Q9967

== ENCOUNTER 2022-07-08 07:00 | Emergency (ER) | payer MEDICARE, MEDICAID ==
[~2022-07-08] VITALS: Ht 172.7 cm; Wt 90.9 kg
[~2022-07-08 07:00] MED LIST changes: +LOSARTAN POTASS25 MG PO
[2022-07-08 07:06] VITALS: BP 188/69
[2022-07-08 07:31] VITALS: BP 177/84
[2022-07-08 07:38] LABS: IMMATURE GRANULOCYTES 0.2 % (0.0-5.0); MEAN CELL VOLUME 88.2 fL CALC (80.0-100.0); MEAN CORPUSCULAR HGB 30.4 pG CALC (26.0-32.0); MEAN CORPUSCULAR HGB CONC 34.4 g/dL CAL (32.0-36.0); NEUT# 8.72 thou/uL (2.00-7.15); RED BLOOD COUNT 4.25 mill/uL (4.20-5.60); RED CELL DISTRI WIDTH 12.9 % (11.5-15.5)
[2022-07-08 07:39] LABS: HEMATOCRIT 37.5 % (37.0-47.0); HEMOGLOBIN 12.9 g/dl (12.0-16.0)
[2022-07-08 07:49] LABS: ALKALINE PHOSPHATASE 73 u/l (38-126); ANION GAP 14 (6-22 (CALC)); BILIRUBIN, TOTAL 0.6 mg/dL (0.0-1.4); BUN 14 mg/dL (8-23); BUN/CREATININE RATIO 25 (12-20 (CALC)); CARBON DIOXIDE 27 mmol/l (22-30); CHLORIDE 102 mmol/l (95-108); CREATININE 0.6 mg/dL (0.5-1.0); GFR FOR AFR.AMER. > 60 ML/MIN (>=60 (CALC)); GFR OTHER RACES > 60 ML/MIN (>=60 (CALC)); POTASSIUM 4.6 mmol/l (3.5-5.1); SGOT/AST 20 u/l (9-36); SODIUM 138 mmol/l (137-146); TOTAL PROTEIN 7.8 g/dL (6.3-8.2)
[2022-07-08 07:51] LABS: ALBUMIN 4.4 g/dL (3.2-5.0)
[2022-07-08] MEDS ORDERED: TRAMADOL HCL50 MG PO (08:17)
[2022-07-08] MEDS ORDERED: LOSARTAN POTAS100 MG PO (08:18)
[2022-07-08] MEDS ORDERED: LOSARTAN POTASS50 MG PO (08:18)
[2022-07-08] MEDS ORDERED: ZOFRAN4 MG/TAB PO (08:36)
[2022-07-08 09:13] VITALS: BP 177/84
== END 2022-07-08 09:20 | disposition home or self-care (01) ==
LOC: ED 07:00
PROVIDERS: Family Medicine
DX: R51.9 Headache, unspecified (principal); I10 Essential (primary) hypertension; E11.40 Type 2 diabetes mellitus with diabetic neuropathy, unspecified; Z79.4 Long term (current) use of insulin; Z89.421 Acquired absence of other right toe(s); Z98.42 Cataract extraction status, left eye

== ENCOUNTER 2022-11-21 16:02 | Inpatient (IN) | payer MEDICARE, MEDICAID ==
[~2022-11-21] VITALS: Ht 172.7 cm; Wt 91.8 kg
[~2022-11-21 16:02] MED LIST changes: +LOSARTAN POTAS100 MG PO; +LOSARTAN POTASS50 MG PO; +ZOFRAN4 MG/TAB PO
[2022-11-21 16:28] VITALS: BP 155/52
[2022-11-21 17:05] LABS: BASO% 0.7 % (0-3); EOS% 2.8 % (0-8); HEMATOCRIT 39.9 % (37.0-47.0); HEMOGLOBIN 14.3 g/dl (12.0-16.0); IMMATURE GRANULOCYTES 0.2 % (0.0-5.0); LYMPH% 33.4 % (15-41); MEAN CELL VOLUME 87.1 fL CALC (80.0-100.0); MEAN CORPUSCULAR HGB 31.2 pG CALC (26.0-32.0); MEAN CORPUSCULAR HGB CONC 35.8 g/dL CAL (32.0-36.0); MONO% 8.7 % (2-13); NEUT# 6.28 thou/uL (2.00-7.15); NEUT% 54.2 % (42-76); RED BLOOD COUNT 4.58 mill/uL (4.20-5.60); RED CELL DISTRI WIDTH 12.3 % (11.5-15.5)
[2022-11-21] MEDS ORDERED: PRED FORTE1 % OD (17:21)
[2022-11-21] MEDS ORDERED: DOXYCYCLINE100 MG PO (17:23)
[2022-11-21 17:31] LABS: ALBUMIN 4.6 g/dL (3.2-5.0); ALKALINE PHOSPHATASE 68 u/l (38-126); ANION GAP 10 (6-22 (CALC)); BILIRUBIN, TOTAL 0.5 mg/dL (0.0-1.4); BUN 15 mg/dL (8-23); BUN/CREATININE RATIO 23 (12-20 (CALC)); CARBON DIOXIDE 32 mmol/l (22-30); CHLORIDE 99 mmol/l (95-108); CREATININE 0.6 mg/dL (0.5-1.0); GFR FOR AFR.AMER. > 60 ML/MIN (>=60 (CALC)); GFR OTHER RACES > 60 ML/MIN (>=60 (CALC)); POTASSIUM 3.9 mmol/l (3.5-5.1); SGOT/AST 28 u/l (9-36); SODIUM 137 mmol/l (137-146); TOTAL PROTEIN 7.5 g/dL (6.3-8.2)
[2022-11-21 19:01] VITALS: BP 150/55
[2022-11-21 21:34] VITALS: BP 148/63
[2022-11-22] VITALS (11 sets, daily range): BP systolic 133–173; BP diastolic 46–80
[2022-11-22 00:46] LABS: URINE BILIRUBIN - DIPSTICK NEGATIVE (NEGATIVE); URINE BLOOD DIPSTICK NEGATIVE (NEGATIVE); URINE CLARITY CLEAR; URINE COLOR YELLOW; URINE GLUCOSE - DIPSTICK NEGATIVE (NEGATIVE); URINE KETONE NEGATIVE (NEGATIVE); URINE LEUK ESTERASE NEGATIVE (Negative); URINE NITRITE - DIPSTICK NEGATIVE (Negative); URINE PROTEIN - DIPSTICK TRACE mg/dL (NEG-TRACE); URINE UROBILINOGEN - DIPSTICK 0.2 E.U./dL (0.2)
[2022-11-23 04:32] VITALS: BP 146/73
[2022-11-23 05:52] LABS: BASO% 0.5 % (0-3); EOS% 3.2 % (0-8); HEMATOCRIT 39.9 % (37.0-47.0); HEMOGLOBIN 14.2 g/dl (12.0-16.0); IMMATURE GRANULOCYTES 0.2 % (0.0-5.0); LYMPH% 29.4 % (15-41); MEAN CELL VOLUME 89.9 fL CALC (80.0-100.0); MEAN CORPUSCULAR HGB CONC 35.6 g/dL CAL (32.0-36.0); MONO% 10.4 % (2-13); NEUT# 7.15 thou/uL (2.00-7.15); NEUT% 56.3 % (42-76); RED BLOOD COUNT 4.44 mill/uL (4.20-5.60); RED CELL DISTRI WIDTH 12.3 % (11.5-15.5)
[2022-11-23 05:56] LABS: ALBUMIN 4.1 g/dL (3.2-5.0); ALKALINE PHOSPHATASE 60 u/l (38-126); ANION GAP 13 (6-22 (CALC)); BILIRUBIN, TOTAL 0.5 mg/dL (0.0-1.4); BUN 13 mg/dL (8-23); BUN/CREATININE RATIO 22 (12-20 (CALC)); CARBON DIOXIDE 26 mmol/l (22-30); CHLORIDE 104 mmol/l (95-108); CREATININE 0.6 mg/dL (0.5-1.0); GFR FOR AFR.AMER. > 60 ML/MIN (>=60 (CALC)); GFR OTHER RACES > 60 ML/MIN (>=60 (CALC)); POTASSIUM 4.3 mmol/l (3.5-5.1); SGOT/AST 24 u/l (9-36); SODIUM 139 mmol/l (137-146)
[2022-11-23] MEDS ORDERED: DOXYCYCLINE100 MG PO (08:56)
[2022-11-23 09:15] VITALS: BP 146/73
== END 2022-11-23 09:26 | disposition home or self-care (01) | DRG 617 ==
LOC: MS2 16:02
PROVIDERS: Nurse Practitioner Family; ADMIT Internal Medicine; ATTEND Internal Medicine
PROC: 0Y6T0Z0 Detachment at Right 3rd Toe, Complete, Open Approach (ICD-10-PCS; principal; 2022-11-22)
PROC: 0QBN0ZZ Excision of Right Metatarsal, Open Approach (ICD-10-PCS; 2022-11-22)
PROC: 0L8V0ZZ Division of Right Foot Tendon, Open Approach (ICD-10-PCS; 2022-11-22)
DX: E11.69 Type 2 diabetes mellitus with other specified complication (principal); L97.518 Non-pressure chronic ulcer of other part of right foot with other specified severity; M86.8X7 Other osteomyelitis, ankle and foot; L03.031 Cellulitis of right toe; E11.621 Type 2 diabetes mellitus with foot ulcer; E11.42 Type 2 diabetes mellitus with diabetic polyneuropathy; M20.41 Other hammer toe(s) (acquired), right foot; M25.774 Osteophyte, right foot; I10 Essential (primary) hypertension; Z89.421 Acquired absence of other right toe(s); Z79.4 Long term (current) use of insulin
CPT/HCPCS: J0692

== ENCOUNTER 2022-11-24 17:36 | Emergency (ER) | payer MEDICARE, MEDICAID ==
[~2022-11-24] VITALS: Ht 172.7 cm; Wt 90.9 kg
[~2022-11-24 17:36] MED LIST changes: +PRED FORTE1 % OD
[2022-11-24 18:50] VITALS: BP 177/77
[2022-11-24 19:01] VITALS: BP 154/68
[2022-11-24 19:16] VITALS: BP 143/60
[2022-11-24 19:31] VITALS: BP 148/77
[2022-11-24 19:46] VITALS: BP 136/79
[2022-11-24 19:50] VITALS: BP 136/79
== END 2022-11-24 19:50 | disposition home or self-care (01) ==
LOC: ED 17:36
DX: L76.22 Postprocedural hemorrhage of skin and subcutaneous tissue following other procedure (principal); I10 Essential (primary) hypertension; E11.40 Type 2 diabetes mellitus with diabetic neuropathy, unspecified; Y83.5 Amputation of limb(s) as the cause of abnormal reaction of the patient, or of later complication, without mention of misadventure at the time of the procedure; Z79.4 Long term (current) use of insulin; Z89.421 Acquired absence of other right toe(s)

== ENCOUNTER 2022-12-14 19:10 | Emergency (ER) | payer MEDICARE, MEDICAID ==
[~2022-12-14] VITALS: Ht 172.7 cm; Wt 93.0 kg
[2022-12-14] VITALS (15 sets, daily range): BP systolic 107–153; BP diastolic 53–70
[2022-12-14 20:34] LABS: BASO% 0.3 % (0-3); HEMATOCRIT 36.8 % (37.0-47.0); HEMOGLOBIN 12.4 g/dl (12.0-16.0); IMMATURE GRANULOCYTES 0.2 % (0.0-5.0); LYMPH% 23.9 % (15-41); MEAN CELL VOLUME 89.5 fL CALC (80.0-100.0); MEAN CORPUSCULAR HGB 30.2 pG CALC (26.0-32.0); MEAN CORPUSCULAR HGB CONC 33.7 g/dL CAL (32.0-36.0); MONO% 9.1 % (2-13); NEUT# 8.64 thou/uL (2.00-7.15); NEUT% 65.5 % (42-76); RED BLOOD COUNT 4.11 mill/uL (4.20-5.60); RED CELL DISTRI WIDTH 12.5 % (11.5-15.5)
[2022-12-14 20:52] LABS: ALBUMIN 4.3 g/dL (3.2-5.0); ALKALINE PHOSPHATASE 63 u/l (38-126); AMYLASE 46 u/l (30-110); ANION GAP 10 (6-22 (CALC)); BILIRUBIN, TOTAL 0.7 mg/dL (0.0-1.4); BUN 16 mg/dL (8-23); BUN/CREATININE RATIO 25 (12-20 (CALC)); CARBON DIOXIDE 27 mmol/l (22-30); CHLORIDE 101 mmol/l (95-108); CREATININE 0.6 mg/dL (0.5-1.0); GFR FOR AFR.AMER. > 60 ML/MIN (>=60 (CALC)); GFR OTHER RACES > 60 ML/MIN (>=60 (CALC)); LIPASE 31 u/l (23-300); POTASSIUM 4.5 mmol/l (3.5-5.1); SGOT/AST 25 u/l (9-36); SODIUM 134 mmol/l (137-146); TOTAL PROTEIN 7.5 g/dL (6.3-8.2)
[2022-12-14 21:54] LABS: URINE BILIRUBIN - DIPSTICK NEGATIVE (NEGATIVE); URINE BLOOD DIPSTICK NEGATIVE (NEGATIVE); URINE COLOR YELLOW; URINE GLUCOSE - DIPSTICK NEGATIVE (NEGATIVE); URINE KETONE NEGATIVE (NEGATIVE); URINE LEUK ESTERASE NEGATIVE (NEGATIVE); URINE PH 5.5 (4.5-8.0); URINE PROTEIN - DIPSTICK 100 mg/dL (NEG-TRACE); URINE SPECIFIC GRAVITY >=1.030; URINE UROBILINOGEN - DIPSTICK 0.2 E.U./dL (0.2)
[2022-12-14 21:55] LABS: URINE NITRITE - DIPSTICK NEGATIVE (Negative)
[2022-12-14 21:56] LABS: URINE RBC 0-2 RBC/hpf (0-5); URINE SQUAMOUS EPITHELIAL CELL FEW EPI/hpf (0-FEW)
[2022-12-14] MEDS ORDERED: NAPROXEN500 MG PO (22:07)
== END 2022-12-14 23:34 | disposition home or self-care (01) ==
LOC: ED 19:10
PROVIDERS: Emergency Medicine
DX: S20.221A Contusion of right back wall of thorax, initial encounter (principal); I10 Essential (primary) hypertension; E11.40 Type 2 diabetes mellitus with diabetic neuropathy, unspecified; Z79.4 Long term (current) use of insulin; X58.XXXA Exposure to other specified factors, initial encounter

== ENCOUNTER 2023-02-17 13:18 | Emergency (ER) | payer MEDICARE, MEDICAID ==
[~2023-02-17] VITALS: Ht 172.7 cm; Wt 90.7 kg
[~2023-02-17 13:18] MED LIST changes: +NAPROXEN500 MG PO
[2023-02-17 13:45] VITALS: BP 166/80
[2023-02-17 14:00] VITALS: BP 105/72
[2023-02-17] MEDS ORDERED: OMNICEF300 M1 PO (14:42)
[2023-02-17 15:01] VITALS: BP 151/55
[2023-02-17 15:43] VITALS: BP 151/55
== END 2023-02-17 15:50 | disposition home or self-care (01) ==
LOC: ED 13:18
PROC: 3E1B78Z Irrigation of Ear using Irrigating Substance, Via Natural or Artificial Opening (ICD-10-PCS; principal; 2023-02-17)
PROC: 3E1B78Z Irrigation of Ear using Irrigating Substance, Via Natural or Artificial Opening (ICD-10-PCS; 2023-02-17)
DX: L03.116 Cellulitis of left lower limb (principal); H61.23 Impacted cerumen, bilateral; S80.212A Abrasion, left knee, initial encounter; I10 Essential (primary) hypertension; E11.40 Type 2 diabetes mellitus with diabetic neuropathy, unspecified; W13.3XXA Fall through floor, initial encounter; Z79.4 Long term (current) use of insulin

== ENCOUNTER 2023-06-25 16:13 | Emergency (ER) | payer MEDICARE, MEDICAID ==
[~2023-06-25] VITALS: Ht 172.7 cm; Wt 91.0 kg
[~2023-06-25 16:13] MED LIST changes: +OMNICEF300 M1 PO
[2023-06-25 16:37] VITALS: BP 182/65
[2023-06-25 16:45] VITALS: BP 151/61
[2023-06-25 17:00] VITALS: BP 148/67
[2023-06-25 17:12] LABS: BASO% 0.6 % (0-3); EOS% 1.7 % (0-8); HEMATOCRIT 37.4 % (37.0-47.0); HEMOGLOBIN 12.3 g/dl (12.0-16.0); IMMATURE GRANULOCYTES 0.3 % (0.0-5.0); LYMPH% 36.8 % (15-41); MEAN CELL VOLUME 89.7 fL CALC (80.0-100.0); MEAN CORPUSCULAR HGB 29.5 pG CALC (26.0-32.0); MEAN CORPUSCULAR HGB CONC 32.9 g/dL CAL (32.0-36.0); MONO% 8.7 % (2-13); NEUT# 5.41 thou/uL (2.00-7.15); NEUT% 51.9 % (42-76); RED BLOOD COUNT 4.17 mill/uL (4.20-5.60); RED CELL DISTRI WIDTH 12.3 % (11.5-15.5)
[2023-06-25 17:15] VITALS: BP 157/59
[2023-06-25 17:22] LABS: ALBUMIN 4.2 g/dL (3.2-5.0); ALKALINE PHOSPHATASE 59 u/l (38-126); ANION GAP 12 (6-22 (CALC)); BILIRUBIN, TOTAL 0.5 mg/dL (0.02-1.3); BUN 16 mg/dL (8-23); BUN/CREATININE RATIO 22 (12-20 (CALC)); C-REACTIVE PROTEIN 0.7 mg/dL (0-0.9); CARBON DIOXIDE 27 mmol/l (22-30); CHLORIDE 100 mmol/l (95-108); CREATININE 0.7 mg/dL (0.5-1.0); GFR FOR AFR.AMER. > 60 ML/MIN (>=60 (CALC)); GFR OTHER RACES > 60 ML/MIN (>=60 (CALC)); POTASSIUM 4.4 mmol/l (3.5-5.1); SGOT/AST 25 u/l (9-36); SODIUM 135 mmol/l (137-146); TOTAL PROTEIN 7.8 g/dL (6.3-8.2)
[2023-06-25] MEDS ORDERED: VIBRAMYCIN100 M2 PO (18:43)
[2023-06-25 19:11] VITALS: BP 157/59
== END 2023-06-25 19:22 | disposition home or self-care (01) ==
LOC: ED 16:13
PROVIDERS: Nurse Practitioner
DX: E11.621 Type 2 diabetes mellitus with foot ulcer (principal); L97.429 Non-pressure chronic ulcer of left heel and midfoot with unspecified severity; E11.40 Type 2 diabetes mellitus with diabetic neuropathy, unspecified; Z89.421 Acquired absence of other right toe(s); Z79.4 Long term (current) use of insulin; M79.89 Other specified soft tissue disorders

== ENCOUNTER 2023-12-23 16:32 | Emergency (ER) | payer MEDICARE, MEDICAID ==
[~2023-12-23] VITALS: Ht 172.7 cm; Wt 86.0 kg
[~2023-12-23 16:32] MED LIST changes: +AMLODIPINE BESYL5 MG PO; +MIRALAX17 GM PO; +VIBRAMYCIN100 M2 PO
[2023-12-23 16:45] VITALS: BP 154/49
[2023-12-23 17:06] LABS: BASO% 0.8 % (0-3); EOS% 1.1 % (0-8); HEMATOCRIT 37.3 % (37.0-47.0); HEMOGLOBIN 12.7 g/dl (12.0-16.0); IMMATURE GRANULOCYTES 0.2 % (0.0-5.0); LYMPH% 30.5 % (15-41); MEAN CELL VOLUME 89.7 fL CALC (80.0-100.0); MEAN CORPUSCULAR HGB 30.5 pG CALC (26.0-32.0); MONO% 6.4 % (2-13); NEUT# 5.6 thou/uL (2.00-7.15); RED BLOOD COUNT 4.16 mill/uL (4.20-5.60); RED CELL DISTRI WIDTH 12.3 % (11.5-15.5)
[2023-12-23 17:22] LABS: ALBUMIN 4.6 g/dL (3.2-5.0); ALKALINE PHOSPHATASE 58 u/l (38-126); ANION GAP 12 (6-22 (CALC)); BILIRUBIN, TOTAL 0.6 mg/dL (0.02-1.3); BUN 15 mg/dL (8-23); BUN/CREATININE RATIO 25 (12-20 (CALC)); CARBON DIOXIDE 26 mmol/l (22-30); CHLORIDE 103 mmol/l (95-108); CREATININE 0.6 mg/dL (0.5-1.0); GFR FOR AFR.AMER. > 60 ML/MIN (>=60 (CALC)); GFR OTHER RACES > 60 ML/MIN (>=60 (CALC)); SGOT/AST 27 u/l (9-36); SODIUM 137 mmol/l (137-146); TOTAL PROTEIN 8.1 g/dL (6.3-8.2)
[2023-12-23 18:43] VITALS: BP 151/61
[2023-12-23 19:01] VITALS: BP 147/56
[2023-12-23 19:31] VITALS: BP 121/67
[2023-12-23 21:33] VITALS: BP 121/67
== END 2023-12-23 21:39 | disposition home or self-care (01) ==
LOC: ED 16:32
PROVIDERS: Family Medicine
DX: R11.2 Nausea with vomiting, unspecified (principal); I10 Essential (primary) hypertension; E11.40 Type 2 diabetes mellitus with diabetic neuropathy, unspecified; Z79.4 Long term (current) use of insulin; Z20.822 Contact with and (suspected) exposure to COVID-19; R94.31 Abnormal electrocardiogram [ECG] [EKG]

== ENCOUNTER 2024-12-21 18:22 | Emergency (ER) | payer MEDICARE ==
[~2024-12-21] VITALS: Ht 172.7 cm; Wt 82.0 kg
[2024-12-21 18:31] VITALS: BP 141/67
[2024-12-21 18:37] VITALS: BP 145/59
[2024-12-21] MEDS ORDERED: SODIUM CHLORIDE 0.9% 1,000 ML IV ONE (18:45)
[2024-12-21] MEDS ORDERED: ONDANSETRON HCl 4 MG/2 ML SDV IV ONE (18:45)
[2024-12-21 18:55] LABS: BASO% 0.3 % (0-3); IMMATURE GRANULOCYTES 0.1 % (0.0-5.0); LYMPH% 30.2 % (15-41); MEAN CELL VOLUME 87.9 fL CALC (80.0-100.0); MEAN CORPUSCULAR HGB 29.9 pG CALC (26.0-32.0); MONO% 19.4 % (2-13); NEUT# 3.45 thou/uL (2.00-7.15); RED BLOOD COUNT 3.71 mill/uL (4.20-5.60); RED CELL DISTRI WIDTH 12.7 % (11.5-15.5)
[2024-12-21 18:57] LABS: HEMATOCRIT 32.6 % (37.0-47.0); HEMOGLOBIN 11.1 g/dl (12.0-16.0)
[2024-12-21 19:07] LABS: BILIRUBIN, TOTAL 0.8 mg/dL (0.02-1.3); CREATININE 0.8 mg/dL (0.5-1.0); POTASSIUM 3.4 mmol/l (3.5-5.1); TOTAL PROTEIN 6.6 g/dL (6.3-8.2)
[2024-12-21 19:16] LABS: ALBUMIN 3.5 g/dL (3.2-5.0)
[2024-12-21] MEDS ORDERED: ONDANSETRON4 MG PO (19:29)
[2024-12-21 19:56] VITALS: BP 145/59
== END 2024-12-21 20:04 | disposition home or self-care (01) ==
LOC: ED 18:22
PROVIDERS: Family Medicine
DX: R11.2 Nausea with vomiting, unspecified (principal); E86.0 Dehydration; I10 Essential (primary) hypertension; E11.40 Type 2 diabetes mellitus with diabetic neuropathy, unspecified; R01.1 Cardiac murmur, unspecified; T50.916A Underdosing of multiple unspecified drugs, medicaments and biological substances, initial encounter; Z91.128 Patient's intentional underdosing of medication regimen for other reason; Z79.4 Long term (current) use of insulin; Z20.822 Contact with and (suspected) exposure to COVID-19
CPT/HCPCS: J2405